=== PATIENT | male | born 2000 | race Caucasian/White ===

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

== ENCOUNTER 2022-04-01 04:15 | Emergency (ER) | payer BC, SELFPAY ==
--- NOTE | 2022-04-01 04:58 | CT_ITS ---
EXAM: CT ABDOMEN AND PELVIS WITHOUT INTRAVENOUS CONTRAST CLINICAL INDICATION: FLANK PAIN TECHNIQUE: Helically acquired images were obtained of the abdomen and pelvis without intravenous contrast. This CT exam was performed using one or more of the following dose reduction techniques: automated exposure control, adjustment of the mA and/or kV according to patient size, and/or use of iterative reconstruction technique. This report was created using [employer] report generation technology. RADIATION DOSE: CTDIvol = 9.2 mGy, DLP = 511 mGy-cm. COMPARISON: None. FINDINGS: LOWER THORAX: Unremarkable. Lung bases are clear. No cardiomegaly. No significant pericardial effusion. ABDOMEN: LIVER: Unremarkable. Homogeneous. GALLBLADDER AND BILE DUCTS: Unremarkable. No calcified gallstones. No gallbladder distention or wall edema. No intra- or extrahepatic biliary ductal dilation. PANCREAS: Unremarkable. No focal cystic mass. SPLEEN: Unremarkable. Normal size without focal cystic or solid mass. ADRENALS: Unremarkable. No nodules. KIDNEYS AND URETERS: Mild right hydroureteronephrosis due to a 2 mm stone at the right ureterovesical junction. Tiny nonobstructing renal calculi bilaterally. Normal renal size and position. STOMACH AND BOWEL: Unremarkable. No stomach or bowel distention. No focal inflammatory change. PELVIS: APPENDIX: Normal appendix. BLADDER: Unremarkable. REPRODUCTIVE: Unremarkable as visualized. No mass. ABDOMEN and PELVIS: INTRAPERITONEAL SPACE: Unremarkable. No ascites or other fluid collection. No free air. BONES/JOINTS: Unremarkable. No suspicious lytic or blastic abnormality. SOFT TISSUES: Unremarkable. No discrete abdominal or pelvic wall hernia. VASCULATURE: Unremarkable. Abdominal aorta is non-dilated. LYMPH NODES: Unremarkable. No enlarged lymph nodes. CT/Abdomen/Pelvis without Cont IMPRESSION: 1. Mild right hydroureteronephrosis due to a 2 mm stone at the right ureterovesical junction. 2. Tiny nonobstructing renal calculi bilaterally. Electronically Signed: Gaston Mckinney MD at 5:20 EDT ,
[2022-04-01 07:54] LABS: Anion Gap 7 (5-15); BUN 14 mg/dL (7-18); BUN/Creat Ratio 15.1 RATIO (10-20); Calcium,Total 9.4 mg/dL (8.5-10.1); Chloride 107 mmol/L (98-107); Creatinine, Serum 0.93 mg/dL (0.70-1.30); EST Glomerular Filtration Rate 108 mL/min (>60); Est Glom Filt Rate - Afr Amer 131 mL/min (>60); Glucose 115 mg/dL (74-106); Potassium 3.6 mmol/L (3.5-5.1); Sodium Level 142 mmol/L (136-145)
[2022-04-01 09:46] LABS: Color, Urine Yellow (Yellow); Glucose, Dipstick Normal (Normal); Ketone-Dipstick 5 mg/dl (Negative); Mucous, Urine 0 SEEN /hpf (<or=2+); Squamous Epithelial Cells - UA 0 SEEN /hpf (0-5); Urine Bilirubin Dipstick Negative (Negative); Urine Clarity Sl Cloudy (Clear); White Blood Cells 0 SEEN /hpf (0-5)
[2022-04-01 09:47] LABS: Bacteria 1+ /hpf (None Seen); Leukocyte Esterase-Dipstick 25 /ul (Negative); Nitrite-Dipstick Negative (Negative); Occult Blood-Urine 250 /ul (Negative); Protein-Dipstick 30 mg/dl (Negative); Red Blood Cells-Urine > 100 SEEN /hpf (0-5); Urine Urobilinogen 1 mg/dl (Normal)
[2022-04-01 10:43] LABS: Hematocrit 44.3 % (40-54); Mean Corpuscular Volume 87.5 fL (80-94); Red Blood Count 5.06 M/mm3 (4.6-6.2); White Blood Count 6.1 K/mm3 (4.4-11.0)
[2022-04-01 10:44] LABS: Basophil% 0.7 % (0-1); Eosinophils% 3.3 % (0-5); Lymphocyte % 37.5 % (19-41); Mean Corp Hgb Conc 33.9 g/dL (32-36); Mean Corpuscular Hgb 29.6 pg (27.0-32.0); Mean Platelet Vol. 9.9 fl (6.2-12.0); Monocyte% 11.1 % (0-10); Neutrophil % 47.2 % (47-70); Platelet Count 250 K/mm3 (150-450); RBC Distribution Width CV 12.2 % (11.6-14.6)
[2022-04-01 10:45] LABS: Absolute Neutrophil Count 2.9 X10^3/uL (2.0-7.7); Basophil# 0.04 X10^3/uL; Monocyte# 0.68 X10^3/uL; Neutrophil # 2.91 X10^3/uL (2.7-7.7)
--- NOTE | 2022-04-01 23:49 | EX.ED.DYSGE1 ---
HPI History of Present Illness Informant: patient Narrative Narrative: Patient presents with right flank pain sharp sudden onset about an hour ago. It radiates a little bit down to his right lower quadrant. Currently moderate but at worst it is severe. He has had some nausea but no vomiting. No diarrhea. No fevers or chills. Nothing makes it better or worse. He did have what he thought was some mild hematuria earlier but the pain started after this. It sounds like he has had 1 kidney stone in the past but was able to pass this without any procedure. This chart is done in its entirety a day or more after the patient's visit. This is due to an extended computerized downtime that included computer, Internet, phones, radiology system and transient inability to obtain medications. There may be details that are missed due to the delayed documentation. There was also no ability to research old information that we may have on the patient. Also, this is done with [employer] software that may have errors. Minimizing these errors are attempted, but all may not be able to be found and corrected. [facility] Medical History (Updated 04/01/22 @ 23:[address] Lito Tony MD) ADD (attention deficit disorder) Home Medications methylphenidate HCl 54 mg tablet,extended release 24 hr (Concerta) 54 mg PO QAM #90 tabs 05/13/20 [Rx Last Taken Unknown] Allergy/AdvReac Type Severity Reaction Status Date / Time No Known Allergies Allergy Unverified 04/18/20 09:54 Family History Grandmother Arthritis Breast cancer Myocardial infarction Hypertension Grandmother Cancer Hypertension Grandfather Hyperlipemia Hypertension Mother Hypertension Surgical History History of tonsillectomy and adenoidectomy Social History Smoking Status: Never smoker alcohol intake: never substance use type: does not use what type of physical activity do you participate in: walking, bicycling and weight training frequency: 3-4 times per week ROS ROS ED Constitutional Constitutional ED: Denies fever(s) ENT ENT ED: Denies rhinorrhea Cardiovascular Cardiovascular: Denies chest pain or palpitations Respiratory/Chest Respiratory/Chest: Denies cough or dyspnea Gastrointestinal Gastrointestinal: Reports abdominal pain and nausea; Denies vomiting Genitourinary Genitourinary ED: Reports hematuria; Denies dysuria or urinary frequency Musculoskeletal Musculoskeletal: Reports back pain; Denies arthralgias or myalgias Integumentary Denies rash Neurologic Neurologic: Denies headache(s) Psychiatric Psychiatric: Denies anxiety or depression Endocrine Endocrinology: Denies polydipsia or polyuria Hematologic/Lymphatic Hematologic/Lymphatic: Denies anemia, easy bleeding or easy bruising Allergic/Immunologic Allergic/Immunologic ED: Denies urticaria EXAM Physical Exam Const Positive well nourished and well developed Constitutional Narrative: Patient is pacing around the room. He does look somewhat comfortable. General Appearance ED: well developed; Negative for diaphoretic or pallor HEENT Reports moist mucous membranes Eyes PERRL and EOMs intact bilaterally Neck no lymphadenopathy Chest Wall inspection of chest normal Resp normal respiratory effort and clear to auscultation bilaterally Cardio regular rate and regular rhythm GI normal to inspection, nondistended, normoactive bowel sounds, non-tender and non-distended Back/Spine Back/Spine Narrative: Mild right-sided CVA tenderness. General Back: CVA tenderness Neuro Sensorium / Orientation: alert Psych mental status grossly normal Skin no rashes or lesions noted General Skin Exam: Negative for jaundice or pallor MDM MDM MDM Narrative Medical decision making narrative: Patient CBC electrolytes overall look normal. Minimal rise of the glucose of 115. Urine showed white cells but did have greater than 100 red cells consistent with kidney stone. CT shows mild right hydronephrosis with 2 mm stone at the right UVJ. Patient was treated with morphine Zofran Toradol and fluids. He is doing much better. We will get him home with Flomax Percocet and Zofran. We discussed reasons to return. We have also given him follow-up instructions. Lab Data Attestation: I reviewed the patient's lab results. Labs: Laboratory Results - last 24 hr 04/01/22 04/01/22 04/01/22 04:30 04:30 04:45 WBC 6.1 RBC 5.06 Hgb 15.0 Hct 44.3 MCV 87.5 MCH 29.6 MCHC 33.9 RDW Std Deviation 39.0 RDW Coeff of Cristobal 12.2 Plt Count 250 MPV 9.9 Immature Gran % (Auto) 0.200 Neut % (Auto) 47.2 Lymph % (Auto) 37.5 Emmons % (Auto) 11.1 H Eos % (Auto) 3.3 Baso % (Auto) 0.7 Absolute Neuts (auto) 2.9 Absolute Lymphs (auto) 2.30 Sodium 142 Potassium 3.6 Chloride 107 Carbon Dioxide 28.0 Anion Gap 7 BUN 14 Creatinine 0.93 Est GFR (MDRD) Af Amer 131 Est GFR (MDRD) Non-Af 108 BUN/Creatinine Ratio 15.1 Glucose 115 H Calcium 9.4 Urine Color Yellow Urine Clarity Sl Cloudy Urine pH 5.0 Ur Specific [place] 1.030 Urine Protein 30 H Urine Glucose (UA) Normal Urine Ketones 5 H Urine Occult Blood 250 H Urine Nitrite Negative Urine Bilirubin Negative Urine Urobilinogen 1 H Ur Leukocyte Esterase 25 H Urine RBC > 100 SEEN Urine WBC 0 SEEN Ur Squamous Epith Cells 0 SEEN Urine Bacteria 1+ Urine Mucus 0 SEEN Radiography Diagnostic Testing: Clinical Impression(s) from Imaging Studies Abdomen/Pelvis CT 04/01/22 04:58 IMPRESSION: 1. Mild right hydroureteronephrosis due to a 2 mm stone at the right ureterovesical junction. 2. Tiny nonobstructing renal calculi bilaterally. Electronically Signed: Gaston Mckinney MD at 5:20 EDT , Discharge Plan Triage ED Provider: Lito Tony Dx/Rx/DC Orders Clinical Impression: Kidney stone on right side, Renal colic on right side Prescriptions: No Action methylphenidate HCl [Concerta] 54 mg tablet extended release 24hr 54 mg PO QAM Qty: 90 0RF Primary Care Provider: Naren Tijerina Disposition Disposition: Home, Self Care Discharge Date/Time: 04/01/22 08:06
== END 2022-04-01 08:06 | disposition home or self-care (01) ==
LOC: ED 07:44
PROVIDERS: Emergency Provider Emergency Medicine; PCP Family Medicine; Visit Provider Emergency Medicine
DX: N13.2 Hydronephrosis with renal and ureteral calculous obstruction (principal); R31.9 Hematuria, unspecified; F98.8 Other specified behavioral and emotional disorders with onset usually occurring in childhood and adolescence; Z79.899 Other long term (current) drug therapy; Z87.442 Personal history of urinary calculi
CPT/HCPCS: 36415; 74176; 80048; 81001; 85025; 99284

== ENCOUNTER 2024-09-05 13:30 | Emergency (ER) | payer OTHER, SELFPAY ==
[2024-09-05 13:31] VITALS: BP 150/73; PULSE 68; RESP 18; TEMP 36.1; O2SAT 100; BMI 35.7
--- NOTE | 2024-09-05 14:10 | EDS_ITS ---
HPI HPI - GI History of Present Illness Chief Complaint: Flank Pain Informant: patient Abdominal Pain/Flank Pain Onset: Today and Hours Context: Sudden Onset Timing: Continuous Location: Left Flank Current Severity: Moderate Maximum Severity: Severe Nausea/Vomiting/Emesis GI Symptom: Positive for Nausea Onset: Today Severity: Mild Diarrhea/Melena/Hematochezia GI Symptom: Negative for Diarrhea or Melena Associated Symptoms Associated Symptoms: Negative for Dysuria, Frequency or Hematuria Narrative Narrative: 23-year-old male history of prior kidney stone which he passed. No prior abdominal or flank surgery. Complaint left flank pain began about an hour ago. Sudden onset. Associated nausea no vomiting or diarrhea. No dysuria. No fever. No abdominal or flank trauma. No other complaints. Prior similar symptoms: Yes Recent Illness/Hospitalization: No PFSH PFSH Medical History (Updated 09/05/24 @ 15:[address] Eliazar Paulson MD) ADD (attention deficit disorder) Home Medications ?Medication ?Instructions ?Recorded ?Last Taken ?Type methylphenidate HCl 54 mg 54 mg PO QAM #90 tabs 05/13/20 Unknown Rx tablet,extended release 24 hr (Concerta) hydrocodone-acetaminophen 5-325mg 1 tab PO Q4H PRN PRN Pain 2 days 09/05/24 Unknown Rx 5mg-325mg #12 TABLETS ondansetron 4 mg disintegrating 4 mg PO Q4H PRN nausea and 09/05/24 Unknown Rx tablet vomiting #7 tabs Allergy/AdvReac Type Severity Reaction Status Date / Time No Known Allergies Allergy Verified 09/05/24 13:31 Family History Grandmother Arthritis Breast cancer Myocardial infarction Hypertension Grandmother Cancer Hypertension Grandfather Hyperlipemia Hypertension Mother Hypertension Surgical History History of tonsillectomy and adenoidectomy Social History Smoking Status: Never smoker alcohol intake: never substance use type: does not use what type of physical activity do you participate in: walking, bicycling and weight training frequency: 3-4 times per week ROS ROS ED ROS Narrative Left flank pain. Nausea. Constitutional Constitutional ED: Denies chills or fever(s) ENT ENT ED: Denies ear pain Cardiovascular Cardiovascular: Denies chest pain Respiratory/Chest Respiratory/Chest: Denies cough Gastrointestinal Gastrointestinal: Reports nausea; Denies abdominal pain, constipation, diarrhea, melena or vomiting Genitourinary Genitourinary ED: Denies dysuria or hematuria Musculoskeletal Musculoskeletal: Denies arthralgias Integumentary Denies abscess Neurologic Neurologic: Denies headache(s) Psychiatric Psychiatric: Denies anxiety Endocrine Endocrinology: Denies polydipsia Hematologic/Lymphatic Hematologic/Lymphatic: Denies easy bleeding Allergic/Immunologic Allergic/Immunologic ED: Denies mouth swelling EXAM Physical Exam Narrative Exam Narrative: 23-year-old male vital signs stable afebrile. Complaint left flank pain. Mom present in the room. H EENT exam unremarkable. Neck nontender. Lungs clear to auscultation. Heart regular rhythm rate about 70 no murmur. Chest wall ribs nontender. Abdomen soft nondistended normal bowel sounds without peritoneal signs. No hernia or mass. No distention. Right upper or right lower quadrant unremarkable. Back nontender. No CVA tenderness. Moving all 4 extremities. Normal strength. Normal range of motion. No edema. He is awake alert. No focal motor deficits. Const Vital Signs: 09/05/24 13:31 09/05/24 14:44 09/05/24 15:33 Temperature 97 F L 97.8 F 97.7 F L Temperature Source Temporal Oral Oral Pulse Rate 68 66 Respiratory Rate 18 16 Blood Pressure 150/73 H 134/74 H Blood Pressure Mean 98 94 Pulse Ox 100 100 Oxygen Delivery Method Room Air Room Air Positive well nourished and well developed; Negative for cachectic, contractures or unkempt General Appearance ED: well developed; Negative for unkempt, cachectic, contractures, NAD or pallor Nutritional Appearance: Negative for cachectic HEENT Reports moist mucous membranes normocephalic and atraumatic Eyes PERRL and EOMs intact bilaterally Neck no lymphadenopathy, supple and no JVD Resp normal respiratory effort and clear to auscultation bilaterally Auscultation: Negative for rales, rhonchi or wheezes Cardio regular rate, regular rhythm, S1 normal heart sound, S2 normal heart sound and no murmurs Rate: Negative for bradycardia or tachycardic Rhythm: Negative for abnormal rhythm GI non-tender, non-distended and no masses Inspection: Negative for abdominal distention Auscultation: normoactive bowel sounds Palpation: soft; Negative for tender, guarding or rebound tenderness present Back/Spine no CVA tenderness General Back: Negative for CVA tenderness Cervical Spine: Negative for cervical spine tenderness Thoracic Spine / Upper Back: Negative for thoracic spinal tenderness Lumbar Spine / Lower Back: Negative for lumbar spinal tenderness Coccyx: Negative for other Extremity full ROM General Extremety ED: Negative for edema, tenderness or other findings General Extremity: Negative for edema or other findings Neuro CN's II-XII intact bilaterally and moves all extremities Sensorium / Orientation: alert, oriented to person, oriented to place and oriented to time; Negative for orientation impaired, confused or lethargic Motor Exam: strength 5/5 throughout Psych mental status grossly normal and thought process normal Appearance: Negative for unkempt Attitude: No agitated Mood & Affect: Negative for depressed, anxious or tearful Skin no wounds General Skin Exam: Negative for jaundice or pallor Lesions: no lesions Rashes: no rashes MDM MDM MDM Narrative Medical decision making narrative: 23-year-old male left flank pain suspect kidney stone. CAT scan labs. Toradol, morphine and Zofran for pain and nausea. Repeat exam at 3:25 PM his pain is much better. Started to return over given another dose of morphine. 6 mg. They are comfortable with him being discharged home. Were awaiting the UA. We discussed test results and treatment plan. He will be discharged home on Gamaliel for pain and Zofran for nausea. Repeat exam at 405 patient doing well. To be discharged home. Follow-up as needed. Fluids. History & Record Review Discussion w/independent historian: Patient Additional record(s) reviewed:: Prior inpatient record, Prior outpatient record, Prior ED visit and Prior labs Lab Data Attestation: I reviewed the patient's lab results. Lab results narrative: Electrolytes show gap 6. Normal BUN of 13 creatinine 1.1. Leukos 128. CAT scan proximal left ureteral calculi with hydroureter. Stone about 3 mm. Urinalysis shows 250 occult blood. And greater than 100 red cells. No white cells. 1+ bacteria. No nitrites. Labs: Laboratory Results - last 24 hr 09/05/24 09/05/24 14:00 15:10 Sodium 138 Potassium 4.1 Chloride 107 Carbon Dioxide 25.0 Anion Gap 6 BUN 13 Creatinine 1.12 Estim Creat Clear Calc 117.58 Est GFR (MDRD) Af Amer 103 Est GFR (MDRD) Non-Af 85 BUN/Creatinine Ratio 11.6 Glucose 128 H Calcium 9.5 Urine Color Yellow Urine Clarity Cloudy Urine pH 5.0 Ur Specific [place] 1.025 Urine Protein 100 H Urine Glucose (UA) Normal Urine Ketones Negative Urine Occult Blood 250 H Urine Nitrite Negative Urine Bilirubin 1 H Urine Urobilinogen 1 H Ur Leukocyte Esterase 25 H Urine RBC > 100 SEEN Urine WBC 0-5 SEEN Ur Squamous Epith Cells 0 SEEN Urine Bacteria 1+ Urine Mucus 1+ Radiography Diagnostic Testing: Clinical Impression(s) from Imaging Studies Abdomen/Pelvis CT 09/05/24 14:18 IMPRESSION: Punctate stone in the left kidney. Mild left hydronephrosis with a 3 mm obstructing proximal left ureteral stone noted. Electronically Signed: Wilbert Robles DO at 14:55 EST Reading Location ID and State: [facility] / [place] Tel [phone], Service support , Discharge Plan Triage Chief Complaint: Flank Pain ED Provider: Eliazar Paulson Dx/Rx/DC Orders Clinical Impression: Acute left flank pain, Kidney stone on left side Instructions: ED Kidney Stone with Pain Prescriptions: New hydrocodone-acetaminophen 5-325 mg tablet 1 tab PO Q4H PRN PRN (Reason: Pain) 2 Days Qty: 12 0RF ondansetron 4 mg tablet,disintegrating 4 mg PO Q4H PRN (Reason: nausea and vomiting) Qty: 7 0RF No Action methylphenidate HCl [Concerta] 54 mg tablet extended release 24hr 54 mg PO QAM Qty: 90 0RF Primary Care Provider: Naren Tijerina Referrals: Naren Tijerina DO [Primary Care Provider] - Casper Baer MD [Med Staff - Active Staff] - As Needed Activity Restrictions/Additional Instructions: 3 mm kidney stone on the left. Gamaliel and Motrin for pain. Gamaliel is a narcotic. It may cause nausea. Do not drive or drink alcohol with it. May cause constipation plenty of fluids and fiber. Stool softener as needed. Zofran as needed for nausea. Plenty of fluids. Follow-up with urology as needed. Most likely will pass the stone without problem. Typically they do not get stuck to about 8 mm. Print Language: Khmer Disposition Disposition: Home, Self Care
[2024-09-05] MEDS: Ketorolac 30 MG/ML Syringe IV (14:13)
[2024-09-05] MEDS: Ondansetron 4 MG/2 ML Vial IV (14:13)
[2024-09-05] MEDS: morphine 8 MG/ML Syringe IV (14:14)
--- NOTE | 2024-09-05 14:18 | CT_ITS ---
STUDY: CT ABDOMEN AND PELVIS WITHOUT CONTRAST REASON FOR EXAM: Male, 23 years old. left flank pain RADIATION DOSAGE (If Supplied By Facility): CTDIvol = ( 16.18 ) mGy, DLP = ( 885.25 ) mGycm TECHNIQUE: Transaxial images were obtained from the dome of the diaphragm to the symphysis pubis without oral contrast, and without intravenous contrast. Sagittal and coronal images were reconstructed. Individualized dose optimization techniques were used for this CT. COMPARISON: None. FINDINGS: The visualized lung bases are unremarkable. The visualized portions of the heart are within normal limits. Normal liver. Normal gallbladder and extrahepatic biliary system. Normal spleen. Normal pancreas. Normal bilateral adrenal glands. Normal right kidney. Punctate stone in the left kidney. Mild left hydronephrosis with a 3 mm obstructing proximal left ureteral stone noted. Normal visualized stomach. Normal small intestine. Normal colon. The appendix is visualized and appears normal. Normal abdominal aorta. Normal inferior vena cava. Normal retroperitoneum. Normal urinary bladder. Normal abdominal wall. Normal osseous structures. CT/Abdomen/Pelvis without Cont IMPRESSION: Punctate stone in the left kidney. Mild left hydronephrosis with a 3 mm obstructing proximal left ureteral stone noted. Electronically Signed: Wilbert Robles DO at 14:55 EST Reading Location ID and State: [facility] / [place] Tel [phone], Service support ,
[2024-09-05 14:34] LABS: Anion Gap 6 (5-15); BUN 13 mg/dL (7-18); BUN/Creat Ratio 11.6 RATIO (10-20); Calcium,Total 9.5 mg/dL (8.5-10.1); Chloride 107 mmol/L (98-107); Creatinine, Serum 1.12 mg/dL (0.70-1.30); EST Glomerular Filtration Rate 85 mL/min (>60); Est Glom Filt Rate - Afr Amer 103 mL/min (>60); Estimated Creatinine Clearance 117.58 ml/min; Glucose 128 mg/dL (74-106); Potassium 4.1 mmol/L (3.5-5.1); Sodium Level 138 mmol/L (136-145)
[2024-09-05 14:44] VITALS: BP 134/74; PULSE 66; RESP 16; TEMP 36.6; O2SAT 100
[2024-09-05 15:14] LABS: Squamous Epithelial Cells - UA 0 SEEN /hpf (0-5)
[2024-09-05 15:17] LABS: Color, Urine Yellow (Yellow); Glucose, Dipstick Normal (Normal); Ketone-Dipstick Negative (Negative); Leukocyte Esterase-Dipstick 25 /ul (Negative); Nitrite-Dipstick Negative (Negative); Occult Blood-Urine 250 /ul (Negative); Protein-Dipstick 100 mg/dl (Negative); Specific Gravity, Urine 1.025 (1.002-1.030); Urine Clarity Cloudy (Clear); Urine Urobilinogen 1 mg/dl (Normal)
[2024-09-05 15:20] LABS: Urine Bilirubin Dipstick 1 mg/dL (Negative)
[2024-09-05] MEDS: morphine 8 MG/ML Syringe 6 MG IV (15:30)
[2024-09-05 15:33] VITALS: TEMP 36.5
[2024-09-05 15:33] LABS: Mucous, Urine 1+ /hpf (<or=2+); Red Blood Cells-Urine > 100 SEEN /hpf (0-5)
[2024-09-05 15:34] LABS: Bacteria 1+ /hpf (None Seen); White Blood Cells 0-5 SEEN /hpf (0-5)
== END 2024-09-05 16:22 | disposition home or self-care (01) ==
PROVIDERS: Emergency Provider Emergency Medicine; PCP Family Medicine; Referring Provider Emergency Medicine; Visit Provider Emergency Medicine
DX: N13.2 Hydronephrosis with renal and ureteral calculous obstruction (principal)
CPT/HCPCS: 74176; 80048; 81001; 96374; 96375; 96376; 99283; A4216; J2405